=== PATIENT | male | born 1965 | race Caucasian/White ===

== ENCOUNTER 2020-06-17 15:41 | Emergency (ER) | payer OTHER ==
[~2020-06-17 15:41] MED LIST: ADMELOG100 UNIT/1 SC; ALLERGY10 MG PO; ALOGLIPTIN12.5 MG PO; ASPIR 8181 MG PO; ASPIRIN325 MG PO; AUGMENTIN 500-1 EACH PO; BACITRACIN15 GM TP; BACTRIM DS TAB1 EACH PO; BASAGLAR K100 UNIT/1 SC; BUSPIRONE HCL15 MG PO; CLEOCIN HCL300 MG PO; COZAAR100 MG PO; ELIQUIS5 MG PO; ESTRACE1 MG PO; FLONASE ALLER15.8 ML; GABAPENTIN600 MG PO; GLIPIZIDE10 MG PO; GLUCOPHAGE1000 MG PO; HUMALOG100 UNIT/1 SC; INVOKANA300 MG PO; JANUVIA100 MG PO; LACTINEX1 EACH PO; LANTUS **100 UNITS/ SC; LANTUS SOL100 UNIT/1 SC; LEVAQUIN500 MG PO; LEVAQUIN750 MG PO; LIPITOR40 MG PO; LISINOPRIL 10MG10 MG PO; LOPRESSOR25 MG PO; MEDROXYPROGEST2.5 MG PO; NASAL DECONGEST10 MG PO; NEURONTIN800 MG PO; NORCO 5-325 TA1 EACH PO; NORVASC10 MG PO; PANTOPRAZOLE SO40 MG PO; PERCOCET 5-3251 EACH PO; PHENERGAN25 M1 PO; PRINIVIL20 MG PO; PROVENTIL HFA6.7 GM INH; PROZAC20 MG PO; REQUIP0.25 MG PO; REQUIP0.5 MG PO; REQUIP1 MG PO; TOPROL XL 25MG25 MG PO; VIBRAMYCIN100 MG PO
[2020-06-17 16:01] LABS: HCT 42.7 % (42.0-52.0); HGB 12.5 g/dl (13.2-18.0); LYMPHOCYTE 55.5 % (15-48); MCH 23.5 pg (25.0-31.0); MCHC 29.3 g/dL (32.0-36.0); MCV 80.1 fL (78.0-100.0); MONOCYTE 3.4 % (0-12); MPV 8.8 fL (6.0-9.5); NEUTROPHIL 31.9 % (41-80); NRBC 0.5; PLT 213 K/uL (150-400); RBC 5.33 M/uL (4.70-6.00); RDW 19.6 % (11.5-14.0)
[2020-06-17 16:03] LABS: WBC 18.9 K/uL (4.0-10.5)
[2020-06-17 16:05] LABS: INR 1.42 (0.9-1.2); PROTHROMBIN TIME 16.5 SECONDS (11.4-13.6)
[2020-06-17 16:06] LABS: PTT 55.8 SECONDS (22.2-34.7)
[2020-06-17 16:13] LABS: ALBUMIN 2.6 g/dL (3.4-5.0); BILIRUBIN - TOTAL 0.3 mg/dL (0.2-1.0); BUN/CREAT RATIO (CALC) 14.6 RATIO; CREATININE 0.89 mg/dL (0.67-1.17); GLOBULIN (CALCULATION) 3.9 g/dL; POTASSIUM 3.6 mmol/L (3.5-5.1); TOTAL PROTEIN 6.5 g/dL (6.4-8.2)
== END 2020-06-17 18:33 | disposition expired ==
LOC: FER 15:41
PROVIDERS: Emergency Medicine
DX: I46.9 Cardiac arrest, cause unspecified (principal)
CPT/HCPCS: 36415; 80053; 82550; 83605; 84484; 85025; 85610; 85730; J0171; J0461; J0610